=== PATIENT | female | born 1985 | race Caucasian/White ===

== ENCOUNTER 2017-03-21 13:18 | Emergency (ER) | payer OTHER ==
[~2017-03-21] VITALS: Ht 152.4 cm; Wt 40.8 kg
[2017-03-21] MEDS ORDERED: IBUPOTC PO (13:31)
[2017-03-21] MEDS ORDERED: NS 1,000 ML IV ONE (14:00)
[2017-03-21] MEDS ORDERED: ACETAMINOPHEN 325 MG TAB PO ONE (14:00)
[2017-03-21] MEDS ORDERED: ONDANSETRON 4MG/2ML VIAL (J2405) IV ONE (14:00)
[2017-03-21 14:26] LABS: ANION GAP 8 MEQ/L (8-16); BLOOD UREA NITROGEN 14 MG/DL (7-18); CALCIUM LEVEL 9.5 MG/DL (8.5-10.1); CARBON DIOXIDE LEVEL 27 MEQ/L (21-32); CHLORIDE LEVEL 103 MEQ/L (98-107); CREATININE FOR GFR 0.76 MG/DL (0.55-1.02); GLOMERULAR FILTRATION RATE > 60.0 (>60); GLUCOSE, FASTING 88 MG/DL (70-105); POTASSIUM SERUM 3.4 MEQ/L (3.5-5.1); SODIUM LEVEL 138 MEQ/L (136-145)
[2017-03-21 14:47] LABS: BASO # 0.1 K/mm3 (0.0-0.2); BASO % 0.7 % (0.0-1.0); EOS # 0.1 K/mm3 (0.0-0.50); EOS % 0.7 % (0.0-3.0); LARGE UNSTAINED CELL # 0.3 K/mm3 (0.0-0.4); LARGE UNSTAINED CELL % 2.8 % (0.0-4.0); LYMPH % 27.1 % (24.0-44.0); MEAN CORPUSCULAR HEMOGLOBIN 30.7 pg (27.0-33.0); MEAN CORPUSCULAR HGB CONC 33.4 g/dl (32.0-36.5); MEAN CORPUSCULAR VOLUME 91.9 fl (80.0-96.0); MONO # 0.5 K/mm3 (0.0-0.8); MONO % 4.5 % (0.0-5.0); NEUTROPHILS # 6.5 K/mm3 (1.8-7.7); NEUTROPHILS % 64.3 % (36.0-66.0); PLATELET COUNT, AUTOMATED 358 k/mm3 (150-450); RED CELL DISTRIBUTION WIDTH 12.2 % (11.5-14.5); WHITE BLOOD COUNT 10.1 K/mm3 (4.0-10.0)
[2017-03-21] MEDS ORDERED: CIPROFLOXACIN 500 MG TAB PO ONE (15:45)
[2017-03-21] MEDS ORDERED: cefTRIAXone SOD 1 GM in D5W MINI-BAG PLUS 50 ML IV ONE (15:45)
[2017-03-21] MEDS ORDERED: TAMSULOSIN 0.4 MG CAP PO ONE (15:45)
[2017-03-21] MEDS ORDERED: FLOM5CAP PO (15:56)
[2017-03-21] MEDS ORDERED: ZOFR4TAB3 PO (15:56)
[2017-03-21] MEDS ORDERED: CIPR500T89 PO (15:56)
[2017-03-21 16:30] VITALS: BP 102/68
--- NOTE | 2017-03-21 16:58 | REP ---
CT ABDOMEN AND PELVIS WITHOUT CONTRAST: CT abdomen and pelvis is performed without oral of IV contrast with sagittal and coronal reconstruction images. Calcified granuloma is seen in the visualized left lung base. Liver demonstrates a 1 cm cyst in the inferior right lobe. Spleen, adrenals, pancreas and right kidney are grossly unremarkable. There appears to be moderate left hydroureter nephrosis caused by a 4 mm stone at the left ureterovesical junction. The urinary bladder is collapsed. No gross adenopathy is seen. A tiny amount of free fluid is seen in the pelvis. I see no free air. The appendix is normal. IMPRESSION: There appears to be a 4 mm calculus at the left ureterovesical junction causing moderate left hydroureteronephrosis. Signed by James Chowdhury MD 03/22/2017 04:04 P
== END 2017-03-21 16:31 | disposition home or self-care (01) ==
LOC: M ED 15:13
DX: N20.1 Calculus of ureter (principal); N39.0 Urinary tract infection, site not specified; N13.30 Unspecified hydronephrosis; Z87.442 Personal history of urinary calculi; Z79.1 Long term (current) use of non-steroidal anti-inflammatories (NSAID)
CPT/HCPCS: 74176; 80048; 81001; 81025; 85025; 87086; 96374; 96375; 99283; J0696; J2405

== ENCOUNTER → 2019-10-06 | Outpatient (CLI) | payer OTHER ==
[~2019-10-06] MED LIST: CIPR-249 PO; FLOM0.4C39 PO; IBUPOTC PO; ZOFR4TAB14 PO
--- NOTE | 2019-10-06 12:01 | REP ---
LEFT HAND, 2ND DIGIT, FOUR VIEWS: HISTORY: Pain after trauma. FINDINGS: No acute fracture or destructive osseous lesion. Electronically Signed by Hans Dubose DO 10/06/2019 12:25 P
== END ==
LOC: M WUC 11:38
PROVIDERS: ATTEND Physician Assistant
DX: M79.645 Pain in left finger(s) (principal)

== ENCOUNTER → 2021-09-10 | Outpatient (REF) | payer OTHER | LOC: M LAB REF 18:57 | PROVIDERS: ATTEND Nurse Practitioner Family | DX: Z12.4 Encounter for screening for malignant neoplasm of cervix (principal); R87.610 Atypical squamous cells of undetermined significance on cytologic smear of cervix (ASC-US) | CPT/HCPCS: 87624; G0123 ==

== ENCOUNTER → 2021-10-12 | Outpatient (REF) | payer BC | LOC: M LAB REF 16:50 | PROVIDERS: ATTEND Nurse Practitioner Family | DX: R35.0 Frequency of micturition (principal); N39.0 Urinary tract infection, site not specified ==

== ENCOUNTER → 2022-03-03 | Outpatient (CLI) | payer BC | LOC: M RAD 09:59 | PROVIDERS: ATTEND Family Medicine | DX: N20.0 Calculus of kidney (principal); Z87.440 Personal history of urinary (tract) infections ==

== ENCOUNTER → 2024-09-25 | Outpatient (REF) | payer OTHER ==
[2024-09-27 15:17] LABS: HPV APTIMA Not Detected (Not Detected)
== END ==
LOC: M LAB REF 17:48
PROVIDERS: ATTEND Nurse Practitioner Family
DX: Z12.4 Encounter for screening for malignant neoplasm of cervix (principal); R87.619 Unspecified abnormal cytological findings in specimens from cervix uteri
CPT/HCPCS: 87624; G0123